=== PATIENT | male | born 1995 | race Caucasian/White ===

== ENCOUNTER 2022-10-31 14:51 | Emergency (ER) | payer SELFPAY ==
[2022-10-31 15:18] VITALS: BP 136/91; PULSE 87; RESP 16; TEMP 36.6; O2SAT 96; BMI 39.8
[2022-10-31 15:27] LABS: Basophils # 0.1 10^3/uL (0.0-0.1); Basophils % 0.7 %; Eosinophils # 0.2 10^3/uL (0.0-0.8); Eosinophils % 1.3 %; Hematocrit 48.4 % (42.0-52.0); Lymphocytes # 1.6 10^3/uL (0.8-4.8); Lymphocytes % 13.8 %; Mean Corpuscular HGB Conc 33.1 g/dL (30.0-36.0); Mean Corpuscular Hemoglobin 28.3 pg (28.0-34.0); Mean Corpuscular Volume 85.7 fl (80-94); Mean Platelet Volume 11.5 fL (7.4-10.4); Monocytes % 8.2 %; Neutrophils # 8.81 10^3/uL (1.8-7.7); Neutrophils % 75.7 %; Nucleated Red Blood Cells % 0 %; Platelet Count 250 10^3/cmm (130-400); Red Blood Count 5.65 10^6/uL (4.1-5.3); Red Cell Distribution Width 13.2 % (12.1-15.1); White Blood Count 11.6 10^3/uL (4.0-10.0)
--- NOTE | 2022-10-31 15:38 | ED_ITS ---
Documented by User: ALVA Joyce 10/31/22 15:53 HPI - Nausea/Vomiting/Diarrhea General: Chief complaint: Nausea/Vomiting/Diarrhea Stated complaint: NVD Time Seen by Provider: 10/31/22 14:56 Source: patient Mode of arrival: ambulatory Limitations: no limitations History of Present Illness: Patient is a 27-year-old male who presents to ED today with complaint of nausea, vomiting, diarrhea that has been present over the past 3 to 4 weeks. Patient states he vomits every single time he tries to eat anything. He states he will attempt to eat meals 2-3 times a day but vomits his entire stomach contents every time. Patient states he does not feel nauseous when he eats. He does not feel like food is difficult to swallow or it gets stuck. He does not have any abdominal pain while eating or after vomiting. He denies acid reflux-like symptoms. He also states he has had watery diarrhea during the same timeframe. He states he is having a watery stool every 5 to 10 minutes and has so over the past 3 to 4 weeks. Patient denies lightheadedness, dizziness, passing out episodes. He feels like his urination output has been normal. He has not been running fevers. Again patient has not experienced any abdominal pain. MD elicited complaint: nausea, vomiting and diarrhea Onset (ago): week(s) Description of vomiting: food contents Description of diarrhea: watery Associated nausea: Yes Associated abdominal pain: No Location of pain: None Exacerbating factors: eating Associated symtoms: Reports no associated symptoms and nausea; Denies bloating, chest pain, dizziness, dysuria, fatigue, fecal incontinence, headache(s) or malaise Review of Systems Const: Denies: fever(s), chills, body aches, fatigue or malaise Card: Denies: chest pain Resp: Denies: dyspnea GI: Reports: nausea, vomiting, diarrhea and change in bowel habits; Denies: abdominal pain, hematemesis, coffee ground emesis, dysphagia, heartburn, early satiety, constipation, bloating, GI cramping, belching, excessive flatus, fecal incontinence, pain on defecation, rectal pain, rectal swelling, rectal itching, hematochezia, melena or mucus in stool : Denies: flank pain, difficulty urinating, dysuria, urinary frequency or urinary urgency Musc: Denies: neck pain, back pain, extremity pain or joint pain Skin/Breast: Denies: rash Neuro: Denies: headache(s), numbness in extremities, weakness in extremities, sensory changes or dizziness Physical Exam Const: COMMON NORMALS: no acute distress, patient oriented x3, no limitations, alert and well nourished GENERAL APPEARANCE: cooperative ORIENTATION/CONSCIOUSNESS: Yes awake, Yes oriented to person, Yes oriented to place and Yes oriented to time Eye: COMMON NORMALS: no scleral icterus Neck/C-Spine: COMMON NORMALS: full ROM, no lymphadenopathy, no meningeal signs and no JVD Resp: COMMON NORMALS: normal respiratory effort and clear to auscultation bilaterally AUSCULTATION: clear to auscultation bilaterally Cardio: COMMON NORMALS: no JVD, regular rate and regular rhythm RATE: r egular rate RHYTHM: regular rhythm GI: COMMON NORMALS: Normal to inspection, nondistended, normoactive bowel sounds present, Soft to palpation, non-tender, No hepatosplenomegaly present and no masses INSPECTION: Yes normal to inspection AUSCULTATION: Yes normoactive bowel sounds PALPATION: Yes Soft to palpation, No Tenderness to palpation present (GI), No Guarding due to palpation present (GI), No Rigid due to palpation and Yes No hepatosplenomegaly present : COMMON NORMALS: Yes no CVA tenderness BLADDER/KIDNEY EXAM: Yes no CVA tenderness Back/Pelvis: COMMON NORMALS: no CVA tenderness Extremity: COMMON NORMALS: normal to inspection GENERAL: Yes normal exam except as noted Neuro: KYLE COMA SCALE: document GCS findings Kyle coma scale eye opening: Spontaneous Kyle coma scale verbal response: Orientated Kyle coma scale motor response: Obey commands Kyle coma scale total score: 15 COMMON NORMALS: patient oriented x3 SENSORIUM/ORIENTATION: Yes alert, Yes oriented to person, Yes oriented to place and Yes oriented to time MENINGEAL SIGNS: Yes no meningeal signs Skin: COMMON NORMALS: no rashes or lesions noted GENERAL SKIN EXAM: no rashes or lesions noted Course Vital Signs: Vital signs: Vital Signs Temperature 97.9 F 10/31/22 15:18 Pulse Rate 93 10/31/22 16:18 Respiratory Rate 16 10/31/22 15:18 Blood Pressure 147/88 10/31/22 16:18 Pulse Oximetry 94 10/31/22 16:18 Oxygen Delivery Me thod Room Air 10/31/22 16:18 MDM - Nausea/Vomiting/Diarrhea Lab Data 10/31/22 15:14 10/31/22 15:14 Laboratory Results WBC 11.6 10^3/uL (4.0-10.0) H 10/31/22 15:14 RBC 5.65 10^6/uL (4.1-5.3) H 10/31/22 15:14 Hgb 16.0 g/dL (11.7-16.6) 10/31/22 15:14 Hct 48.4 % (42.0-52.0) 10/31/22 15:14 MCV 85.7 fl (80-94) 10/31/22 15:14 MCH 28.3 pg (28.0-34.0) 10/31/22 15:14 MCHC 33.1 g/dL (30.0-36.0) 10/31/22 15:14 RDW 13.2 % (12.1-15.1) 10/31/22 15:14 Plt Count 250 10^3/cmm (130-400) 10/31/22 15:14 MPV 11.5 fL (7.4-10.4) H 10/31/22 15:14 Neut % (Auto) 75.7 % 10/31/22 15:14 Lymph % (Auto) 13.8 % 10/31/22 15:14 [place] % (Auto) 8.2 % 10/31/22 15:14 Eos % (Auto) 1.3 % 10/31/22 15:14 Baso % (Auto) 0.7 % 10/31/22 15:14 Neut # (Auto) 8.81 10^3/uL (1.8-7.7) H 10/31/22 15:14 Lymph # (Auto) 1.6 10^3/uL (0.8-4.8) 10/31/22 15:14 [place] # (Auto) 1.0 10^3/uL (0.2-0.9) H 10/31/22 15:14 Eos # (Auto) 0.2 10^3/uL (0.0-0.8) 10/31/22 15:14 Baso # (Auto) 0.1 10^3/uL (0.0-0.1) 10/31/22 15:14 Nucleated RBC % (auto) 0 % 10/31/22 15:14 Nucleated RBCs # 0.0 /100WBC 10/31/22 15:14 Sodium 140 mmol/L (136-145) 10/31/22 15:14 Potassium 3.3 mmol/L (3.5-5.1) L 10/31/22 15:14 Chloride 105 mmol/L (98-107) 10/31/22 15:14 Carbon Dioxide 21 mmol/L (22-29) L 10/31/22 15:14 Anion Gap 17.3 (5-19) 10/31/22 15:14 BUN 10 mg/dL (6-20) 10/31/22 15:14 Creatinine 0.9 mg/dL (0.7-1.2) 10/31/22 15:14 GFR Calculation 102.8 mL/min (90-130) 10/31/22 15:14 Glucose 107 mg/dL (65-115) 10/31/22 15:14 Calculated Osmolality 290 mOsm/kg (285-295) 10/31/22 15:14 Calcium 9.3 mg/dL (8.5-10.5) 10/31/22 15:14 Total Bilirubin 0.4 mg/dL (0.15-1.2) 10/31/22 15:14 AST 36 U/L (0-40) 10/31/22 15:14 ALT 55 U/L (0-41) H 10/31/22 15:14 Alkaline Phosphatase 91 U/L (40-130) 10/31/22 15:14 Total Protein 7.5 g/dL (6.6-8.7) 10/31/22 15:14 Albumin 4.6 g/dL (3.5-5.2) 10/31/22 15:14 Globulin 2.9 g/dL (1.3-4.6) 10/31/22 15:14 Lipase 14 U/L (13-60) 10/31/22 15:14 Urine Color Yellow (Yellow) 10/31/22 15:40 Urine Appearance Cloudy (CLEAR) A 10/31/22 15:40 Urine pH 5 (5-7) 10/31/22 15:40 Ur Specific [place] 1.015 (1.005-1.030) 10/31/22 15:40 Urine Protein 1+ (Negative) H 10/31/22 15:40 Urine Glucose (UA) Norm (Normal) 10/31/22 15:40 Urine Ketones 1+ (Negative) H 10/31/22 15:40 Urine Blood Neg (Negative) 10/31/22 15:40 Urine Nitrate Negative (Negative) 10/31/22 15:40 Urine Bilirubin 1+ (Negative) H 10/31/22 15:40 Urine Urobilinogen Norm mg/dL (Negative) 10/31/22 15:40 Ur Leukocyte Esterase 2+ (Negative) H 10/31/22 15:40 Urine RBC 0-4 /hpf (0-2) H 10/31/22 15:40 Urine WBC 40-55 /hpf (0-5) H 10/31/22 15:40 Ur Squamous Epith Cells 0-4 /hpf (0-5) H 10/31/22 15:40 Amorphous Sediment Not Reportable 10/31/22 15:40 Urine Bacteria None /hpf (NONE) 10/31/22 15:40 Urine Mucus 3+ /hpf 10/31/22 15:40 Discharge Plan Discharge Patient Disposition: Home Clinical Impression: Diarrhea of infectious origin, Acute UTI Condition: Stable Prescriptions: New ciprofloxacin HCl 500 mg tablet 500 mg PO BID Qty: 20 0RF metronidazole 500 mg tablet 500 mg PO Q8H 10 Days Qty: 30 0RF Discharge Orders: Discharge ED (Routine); Ordered 10/31/22 Ordered By: Henrry Mcgrath Discharge Diet: Usual diet Discharge Activity: Increase activity as tolerated Patient Instructions: Acute Diarrhea (ED) Activity Restrictions/Additional Instructions: Follow-up with primary care in 1 week for recheck. Take antibiotics as directed. Drink plenty of water and fluids. Be sure to add an electrolyte solution such as Pedialyte or diluted Gatorade 8 ounces 3 times a day while continuing with diarrhea. Return to ER for worsening symptoms such as high fe lasha greater than 100.4, blood in vomit or stool, or severe abdominal pain. Sign Out Sign Out Data: Patient Sign Out occurred on 10/31/22 at 16:55. Patient's care was discussed, and care was transferred from to Henrry Mcgrath. Coding Level of Care Code ED Research Environmental Scientist for Chg Fwd Documented by User: MARLYN Souza 10/31/22 17:14 HPI - Nausea/Vomiting/Diarrhea General: Chief complaint: Nausea/Vomiting/Diarrhea Stated complaint: NVD Time Seen by Provider: 10/31/22 14:56 Physical Exam Neuro: KYLE COMA SCALE: document GCS findings Kyle coma scale total score: 15 Course Vital Signs: Vital signs: Vital Signs Temperature 97.9 F 10/31/22 15:18 Pulse Rate 93 10/31/22 16:18 Respiratory Rate 16 10/31/22 15:18 Blood Pressure 147/88 10/31/22 16:18 Pulse Oximetry 94 10/31/22 16:18 Oxygen Delivery Me thod Room Air 10/31/22 16:18 MDM - Nausea/Vomiting/Diarrhea Medical Decision Making 27-year-old male patient comes in with 4-week history of diarrhea stools. On exam patient appears nontoxic. Abdomen soft nontender. Bowel sounds were present. Skin is warm and dry. Differential diagnosis includes but not limited to infectious diarrhea, inflammatory bowel disease, gallbladder disease, dehydration, electrolyte disturbance. CBC showed a white count of 11,000, CMP had a potassium of 3.3, urinalysis had increased white blood cells. Lactoferrin for stool was positive. Outstanding labs includes PCR parasite panel, bacterial panel, and C. difficile. We will go ahead and start patient on Cipro and Flagyl for the treatment of infectious diarrhea and UTI. Discussed need for hydration and addition of electrolyte solution routinely until diarrhea resolves. Patient was recommended to follow-up with primary care in 1 week for reevaluation and consideration of other treatment options with possibility for a colonoscopy if symptoms persist. Patient reported understanding and agreed to plan. Lab Data 10/31/22 15:14 10/31/22 15:14 Laboratory Results WBC 11.6 10^3/uL (4.0-10.0) H 10/31/22 15:14 RBC 5.65 10^6/uL (4.1-5.3) H 10/31/22 15:14 Hgb 16.0 g/dL (11.7-16.6) 10/31/22 15:14 Hct 48.4 % (42.0-52.0) 10/31/22 15:14 MCV 85.7 fl (80-94) 10/31/22 15:14 MCH 28.3 pg (28.0-34.0) 10/31/22 15:14 MCHC 33.1 g/dL (30.0-36.0) 10/31/22 15:14 RDW 13.2 % (12.1-15.1) 10/31/22 15:14 Plt Count 250 10^3/cmm (130-400) 10/31/22 15:14 MPV 11.5 fL (7.4-10.4) H 10/31/22 15:14 Neut % (Auto) 75.7 % 10/31/22 15:14 Lymph % (Auto) 13.8 % 10/31/22 15:14 [place] % (Auto) 8.2 % 10/31/22 15:14 Eos % (Auto) 1.3 % 10/31/22 15:14 Baso % (Auto) 0.7 % 10/31/22 15:14 Neut # (Auto) 8.81 10^3/uL (1.8-7.7) H 10/31/22 15:14 Lymph # (Auto) 1.6 10^3/uL (0.8-4.8) 10/31/22 15:14 [place] # (Auto) 1.0 10^3/uL (0.2-0.9) H 10/31/22 15:14 Eos # (Auto) 0.2 10^3/uL (0.0-0.8) 10/31/22 15:14 Baso # (Auto) 0.1 10^3/uL (0.0-0.1) 10/31/22 15:14 Nucleated RBC % (auto) 0 % 10/31/22 15:14 Nucleated RBCs # 0.0 /100WBC 10/31/22 15:14 Sodium 140 mmol/L (136-145) 10/31/22 15:14 Potassium 3.3 mmol/L (3.5-5.1) L 10/31/22 15:14 Chloride 105 mmol/L (98-107) 10/31/22 15:14 Carbon Dioxide 21 mmol/L (22-29) L 10/31/22 15:14 Anion Gap 17.3 (5-19) 10/31/22 15:14 BUN 10 mg/dL (6-20) 10/31/22 15:14 Creatinine 0.9 mg/dL (0.7-1.2) 10/31/22 15:14 GFR Calculation 102.8 mL/min (90-130) 10/31/22 15:14 Glucose 107 mg/dL (65-115) 10/31/22 15:14 Calculated Osmolality 290 mOsm/kg (285-295) 10/31/22 15:14 Calcium 9.3 mg/dL (8.5-10.5) 10/31/22 15:14 Total Bilirubin 0.4 mg/dL (0.15-1.2) 10/31/22 15:14 AST 36 U/L (0-40) 10/31/22 15:14 ALT 55 U/L (0-41) H 10/31/22 15:14 Alkaline Phosphatase 91 U/L (40-130) 10/31/22 15:14 Total Protein 7.5 g/dL (6.6-8.7) 10/31/22 15:14 Albumin 4.6 g/dL (3.5-5.2) 10/31/22 15:14 Globulin 2.9 g/dL (1.3-4.6) 10/31/22 15:14 Lipase 14 U/L (13-60) 10/31/22 15:14 Urine Color Yellow (Yellow) 10/31/22 15:40 Urine Appearance Cloudy (CLEAR) A 10/31/22 15:40 Urine pH 5 (5-7) 10/31/22 15:40 Ur Specific [place] 1.015 (1.005-1.030) 10/31/22 15:40 Urine Protein 1+ (Negative) H 10/31/22 15:40 Urine Glucose (UA) Norm (Normal) 10/31/22 15:40 Urine Ketones 1+ (Negative) H 10/31/22 15:40 Urine Blood Neg (Negative) 10/31/22 15:40 Urine Nitrate Negative (Negative) 10/31/22 15:40 Urine Bilirubin 1+ (Negative) H 10/31/22 15:40 Urine Urobilinogen Norm mg/dL (Negative) 10/31/22 15:40 Ur Leukocyte Esterase 2+ (Negative) H 10/31/22 15:40 Urine RBC 0-4 /hpf (0-2) H 10/31/22 15:40 Urine WBC 40-55 /hpf (0-5) H 10/31/22 15:40 Ur Squamous Epith Cells 0-4 /hpf (0-5) H 10/31/22 15:40 Amorphous Sediment Not Reportable 10/31/22 15:40 Urine Bacteria None /hpf (NONE) 10/31/22 15:40 Urine Mucus 3+ /hpf 10/31/22 15:40 Discharge Plan Discharge Patient Disposition: Home Clinical Impression: Diarrhea of infectious origin, Acute UTI Condition: Stable Prescriptions: New ciprofloxacin HCl 500 mg tablet 500 mg PO BID Qty: 20 0RF metronidazole 500 mg tablet 500 mg PO Q8H 10 Days Qty: 30 0RF Discharge Orders: Discharge ED (Routine); Ordered 10/31/22 Ordered By: Henrry Mcgrath Discharge Diet: Usual diet Discharge Activity: Increase activity as tolerated Patient Instructions: Acute Diarrhea (ED) Activity Restrictions/Additional Instructions: Follow-up with primary care in 1 week for recheck. Take antibiotics as directed. Drink plenty of water and fluids. Be sure to add an electrolyte solution such as Pedialyte or diluted Gatorade 8 ounces 3 times a day while continuing with diarrhea. Return to ER for worsening symptoms such as high fever greater than 100.4, blood in vomit or stool, or severe abdominal pain. Sign Out Sign Out Data: Patient Sign Out occurred on 10/31/22 at 16:55. Patient's care was discussed, and care was transferred from to Henrry Mcgrath. Coding Level of Care Code ED Research Environmental Scientist for Malathi Coleman
[2022-10-31] MEDS: sodium chloride 0.9% 1,000 ML 999 ML IV (15:49)
[2022-10-31 15:52] LABS: Alanine Aminotransferase 55 U/L (0-41); Albumin Level 4.6 g/dL (3.5-5.2); Alkaline Phosphatase 91 U/L (40-130); Anion Gap 17.3 (5-19); Aspartate Amino Transferase 36 U/L (0-40); Blood Urea Nitrogen 10 mg/dL (6-20); Calcium 9.3 mg/dL (8.5-10.5); Carbon Dioxide 21 mmol/L (22-29); Chloride 105 mmol/L (98-107); Globulin 2.9 g/dL (1.3-4.6); Glomerular Filtration Rate 102.8 mL/min (90-130); Glucose 107 mg/dL (65-115); Lipase 14 U/L (13-60); Osmolality Calculated 290 mOsm/kg (285-295); Potassium 3.3 mmol/L (3.5-5.1); Sodium 140 mmol/L (136-145); Total Bilirubin 0.4 mg/dL (0.15-1.2); Total Protein 7.5 g/dL (6.6-8.7)
[2022-10-31 16:00] LABS: Bilirubin Urine 1+ (Negative); Blood Urine Neg (Negative); Glucose Urine UA Norm (Normal); Ketones Urine 1+ (Negative); Nitrate Urine Negative (Negative); Protein Urine 1+ (Negative); Specific Gravity, Urine 1.015 (1.005-1.030); Urine Appearance Cloudy (CLEAR); Urine Color Yellow (Yellow); Urobilinogen Urine Norm (Negative); pH Urine 5 (5-7)
[2022-10-31 16:01] LABS: Add Urine Microscopic? YES; Leukocyte Esterase Urine 2+ (Negative); RBC Urine 0-4 /hpf (0-2); Squamous Epithelial Cell Urine 0-4 /hpf (0-5); WBC Urine 40-55 /hpf (0-5)
[2022-10-31 16:02] LABS: Add Urine Culture? Yes; Mucus Urine 3+ /hpf
[2022-10-31] MEDS: potassium chloride ER 20 mEq Tablet 40 MEQ PO (16:15)
[2022-10-31 16:18] VITALS: BP 147/88; PULSE 93; O2SAT 94
[2022-10-31] MEDS: metroNIDAZOLE 500 MG Tablet PO (17:14)
[2022-10-31] MEDS: ciprofloxacin 500 mg Tablet PO (17:14)
[2022-10-31 17:28] VITALS: BP 138/78; PULSE 87; O2SAT 95
--- NOTE | 2022-11-01 19:19 | PC.NURSE ---
Positive PCR stool culture reported to Rivas Mcgrath. Ramila states that the cipro and flagyl should cover the infection, but he would look further into. No new orders given at this time.
== END 2022-10-31 17:28 | disposition home or self-care (01) ==
PROVIDERS: Physician Assistant; Emergency Provider Nurse Practitioner Family
DX: N39.0 Urinary tract infection, site not specified (principal); A09 Infectious gastroenteritis and colitis, unspecified
CPT/HCPCS: 36415; 80053; 81001; 82274; 83630; 83690; 85025; 87086; 87493; 87506; 96360; 99284; J7030

== ENCOUNTER 2024-07-19 16:43 | Emergency (ER) | payer SELFPAY ==
[2024-07-19 17:04] VITALS: BP 148/91; PULSE 86; TEMP 36.7; O2SAT 97; BMI 41.7
--- NOTE | 2024-07-19 18:06 | XRR_ITS ---
PROCEDURE INFORMATION: Exam: XR Right Hand Exam date and time: 07/19/2024 6:14 PM Age: 29 years old Clinical indication: Injury or trauma; Fall; Blunt trauma (contusions or hematomas); Hand; Right TECHNIQUE: Imaging protocol: Radiologic exam of the right hand. Views: 3 or more views. COMPARISON: No relevant prior studies available. FINDINGS: Bones/joints: Normal. Soft tissues: Normal. XR/XR hand RT min 3V* [id number] IMPRESSION: No acute findings.
[2024-07-19] MEDS: naproxen 500 mg Tablet PO (18:24)
--- NOTE | 2024-07-19 18:27 | W.ED.EXTPRO ---
HPI - Extremity Problem General: Chief complaint: Extremity Injury, Upper Stated complaint: Right thumb injury Time Seen by Provider: 07/19/24 18:06 Source: patient Mode of arrival: ambulatory Limitations: no limitations History of Present Illness: 29-year-old male states he was cleaning a grill on Friday and jammed his right thumb he is having some pain at the base of his thumb he is able to move it fully states pain is worse with motion he rates his pain a 2 out of 10 currently denies any other injuries. Associated symptoms: Deny chest pain, fever(s) or rash Related Data Previous Rx's ?Medication ?Instructions ?Recorded ciprofloxacin HCl 500 mg tablet 500 mg PO BID #20 tabs 10/31/22 Allergies Allergy/AdvReac Type Severity Reaction Status Date / Time No Known Allergies Allergy Verified 07/19/24 17:09 Review of Systems Const: Denies: fever(s), chills, body aches or change in appetite ENMT: Denies: throat pain or dental pain Card: Denies: chest pain Resp: Denies: dyspnea GI: Denies: abdominal pain, nausea, vomiting or diarrhea Musc: Reports: extremity pain; Denies: neck pain or back pain Skin/Breast: Denies: rash Neuro: Denies: headache(s) Physical Exam Const: COMMON NORMALS: no acute distress, patient oriented x3 and healthy appearing HENMT: COMMON NORMALS: normocephalic and atraumatic HEAD & SCALP: normocephalic and atraumatic Eye: COMMON NORMALS: conjunctivae normal CONJUNCTIVA: Yes conjunctivae normal Neck/C-Spine: COMMON NORMALS: full ROM and supple Chest: COMMONS NORMALS: normal inspection of the chest Resp: COMMON NORMALS: normal respiratory effort Cardio: COMMON NORMALS: regular rate RATE: regular rate Extremity: NARRATIVE EXTREMITY EXAM: slight tenderness over right base of thumb no obvious deformity no weakness on exam Neuro: COMMON NORMALS: patient oriented x3, moves all extremities and no focal motor deficits Psych: COMMON NORMALS: mental status grossly normal, Normal thought process present and cooperative THOUGHT PROCESS: Normal thought process present Skin: COMMON NORMALS: no rashes or lesions noted and no wounds GENERAL SKIN EXAM: no rashes or lesions noted Course Vital Signs: Vital signs: Vital Signs Temperature 98.1 F 07/19/24 17:04 Pulse Rate 86 07/19/24 17:04 Blood Pressure 148/91 07/19/24 17:04 Pulse Oximetry 97 07/19/24 17:04 Oxygen Delivery Me thod Room Air 07/19/24 17:04 MDM - Extremity (Nontraumatic) Medical Decision Making Patient presents here with a right thumb sprain x-rays negative patient stable for discharge follow-up PCP return if worsening. Medical Records I reviewed the patient's medical records. XR interpretation done by ED provider, pending radiology final review ED provider radiology interpretation(s): X-ray right hand no fracture noted Discharge Plan Discharge Patient Disposition: Home Clinical Impression: Sprain of hand, thumb, right Qualifiers: Encounter type: initial encounter Condition: Stable Prescriptions: No Action ciprofloxacin HCl 500 mg tablet 500 mg PO BID Qty: 20 0RF Discharge Orders: Discharge ED (Routine); Ordered 07/19/24 Ordered By: Maria Greene Discharge Diet: Advance as tolerated Discharge Activity: Resume usual activity Patient Instructions: Finger Sprain (ED) Print Language: Niuean Coding Level of Care Code ED Rubber Mill Tender for Malathi Coleman
[2024-07-19 18:31] VITALS: BP 129/85; PULSE 91; O2SAT 93
== END 2024-07-19 18:32 | disposition home or self-care (01) ==
PROVIDERS: Emergency Provider Emergency Medicine
DX: S63.601A Unspecified sprain of right thumb, initial encounter (principal); X58.XXXA Exposure to other specified factors, initial encounter
CPT/HCPCS: 73130; 99283; J9999